=== PATIENT | female | born 1995 | race Caucasian/White ===

== ENCOUNTER 2018-01-22 02:05 | Emergency (ER) | payer OTHER ==
[2018-01-22 02:05] VITALS: BP 111/88
[2018-01-22] MEDS ORDERED: BIRTH CONTROL (02:08)
--- NOTE | 2018-01-22 02:09 | ER Report ---
History and Physical Time Seen By MD: 02:05 HPI/ROS CHIEF COMPLAINT: Alcohol intoxication/group home clearance HISTORY OF PRESENT ILLNESS: This is a 22 year old female. She was brought to the ER by the [place] [employer], found on the side of the road intoxicated. The patient denies any pain or injury. She has been drinking tonight. She is nauseated and throwing up. She denies any medical problems or taking any regular medications. Denies any chest pain or shortness breath. Home Meds Reported Medications [ Control] No Conflict Check 01/22/18 Reviewed Nurses Notes: Yes Constitutional Vital Sign - Last 24 Hours 01/22/18 02:05 Temp 97.9 Pulse 120 Resp 18 B/P (MAP) 111/88 Pulse Ox 94 O2 Delivery Room Air Physical Exam General Appearance: Alert, intoxicated Eyes: Pupils equal, round, reactive to light. Scleral injection moderate. ENT: Normal oral mucosa. Moist mucous membranes. Tympanic membranes are normal. Neck: Neck is supple and non tender. Respiratory: Chest is non tender, lungs are clear to auscultation. Cardiac: regular rate and rhythm Gastrointestinal: Abdomen is soft and non tender, no masses, bowel sounds normal. Musculoskeletal: Extremities have full range of motion. Skin: No rashes or lesions. Neuro: No focal neurologic deficits other than the intoxication DIFFERENTIAL DIAGNOSIS: After history and physical exam differential diagnosis was considered for alcohol intoxication Medical Decision Making ED Course/Re-evaluation ED Course Evaluation shows no other acute problems or concerns other than the intoxication. Cleared to be discharged with the police to group home Decision to Disposition Date: Jan 22, 2018 Decision to Disposition Time: 02:08 Depart Departure Latest Vital Signs Vital Signs Date Time Temp Pulse Resp B/P (MAP) Pulse Ox O2 Delivery O2 Flow Rate FiO2 01/22/18 02:05 97.9 120 18 111/88 94 Room Air Impression: Primary Impression: Alcohol intoxication Condition: Condition Unchanged Disposition: [facility] TO PRISON/CORRECTIONAL F Referrals: SILVER BRANCH MD (PCP) Patient Instructions: Alcohol Intoxication (ED) Problem Qualifiers Primary Impression: Alcohol intoxication Complication of substance-induced condition: uncomplicated Qualified Codes: F10.920 - Alcohol use, unspecified with intoxication, uncomplicated ERIC HEREDIA MD Jan 22, 2018 02:08
== END 2018-01-22 02:17 ==
LOC: ER 02:11
DX: F10.920 Alcohol use, unspecified with intoxication, uncomplicated (principal)
CPT/HCPCS: 99281